=== PATIENT | female | born 1980 | race American Indian/Alaskan Native ===

== ENCOUNTER 2016-09-18 18:53 | Emergency (ER) | payer MEDICAID ==
[2016-09-18] MEDS ORDERED: XYLOCAINE 2% INFILTRATI ONE ×2 (21:02→21:05)
--- NOTE | 2016-09-18 21:14 | Emergency Department Report ---
Entered by BAYRON CROWELL, acting as scribe for SACHA MCGHEE PA. - General Chief complaint: Skin/Abscess/Foreign Body Stated complaint: LT UNDERARM SORE Time Seen by Provider: 09/18/16 20:32 Source: patient Mode of arrival: Ambulatory Limitations: No Limitations - History of Present Illness Initial comments: 35 y/o female presents to the ED c/o abscess to left armpit that began 4 days ago. Associated symptoms include pain but she denies fever and chills. Pain is described as constant and 8/10 on a severity scale. No alleviating or aggravating factors. NKDA. JAMISON complaint: abscess/boil (left armpit) Onset/Timin -: days(s) Severity: severe Severity scale (0 -10): 8 Quality: constant Consistency: constant Improves with: none Worsens with: none Context: none Associated symptoms: other (pain, no fever, no chills) Treatments Prior to Arrival: none - Related Data Previous Rx's Medication Instructions Recorded Last Taken Type Atenolol [Tenormin] 25 mg PO DAILY #30 tab 08/18/13 Unknown Rx LORazepam [Ativan] 1 mg PO QHS #20 tab 08/18/13 Unknown Rx LORazepam [Ativan] 1 mg PO BID PRN #20 tablet 04/09/14 Unknown Rx Ibuprofen [Motrin] 800 mg PO Q8HR PRN #30 tablet 09/18/16 Unknown Rx Sulfamethoxazole/Trimethoprim 1 each PO BID #10 tablet 09/18/16 Unknown Rx [Bactrim DS TAB] Allergies Allergy/AdvReac Type Severity Reaction Status Date / Time paroxetine HCl [From Paxil] Allergy Unknown Verified 08/18/13 16:17 sertraline HCl [From Zoloft] Allergy Unknown Verified 09/18/16 19:22 Abscess Boil HPI - HPI Chief Complaint: Skin/Abscess/Foreign Body Stated Complaint: LT UNDERARM SORE Time Seen by Provider: 09/18/16 20:32 Duration: 4 Days Location: Other (lert armpit) Severity: Moderate History: No Fever, No Pain, No Purulent Drainage, No Numbness, No Foreign Body, No Previous History, No Insect Bite Home Medications: Previous Rx's Medication Instructions Recorded Last Taken Type Atenolol [Tenormin] 25 mg PO DAILY #30 tab 08/18/13 Unknown Rx LORazepam [Ativan] 1 mg PO QHS #20 tab 08/18/13 Unknown Rx LORazepam [Ativan] 1 mg PO BID PRN #20 tablet 04/09/14 Unknown Rx Ibuprofen [Motrin] 800 mg PO Q8HR PRN #30 tablet 09/18/16 Unknown Rx Sulfamethoxazole/Trimethoprim 1 each PO BID #10 tablet 09/18/16 Unknown Rx [Bactrim DS TAB] Allergies/Adverse Reactions: Allergies Allergy/AdvReac Type Severity Reaction Status Date / Time paroxetine HCl [From Paxil] Allergy Unknown Verified 08/18/13 16:17 sertraline HCl [From Zoloft] Allergy Unknown Verified 09/18/16 19:22 ED Review of Systems Comment: All other systems reviewed and negative Constitutional: denies: chills, fever Skin: other (abscess to left armpit and pain) ED Past Medical Hx - Past Medical History Previous Medical History?: Yes Hx Hypertension: Yes Hx Psychiatric Treatment: Yes (Depression) Additional medical history: irregular heartbeat, anxiety - Surgical History Hx Appendectomy: Yes Additional Surgical History: L fallopian tube, hernia repairx2 - Social History Smoking Status: Unknown if ever smoked - Medications Home Medications: Home Medications Medication Instructions Recorded Confirmed Last Taken Type Atenolol [Tenormin] 25 mg PO DAILY #30 tab 08/18/13 Unknown Rx LORazepam [Ativan] 1 mg PO QHS #20 tab 08/18/13 Unknown Rx LORazepam [Ativan] 1 mg PO BID PRN #20 tablet 04/09/14 Unknown Rx Ibuprofen [Motrin] 800 mg PO Q8HR PRN #30 tablet 09/18/16 Unknown Rx Sulfamethoxazole/Trimethoprim 1 each PO BID #10 tablet 09/18/16 Unknown Rx [Bactrim DS TAB] ED Physical Exam - General Limitations: No Limitations General appearance: alert, in no apparent distress - Head Head exam: Present: atraumatic, normocephalic, normal inspection - Eye Eye exam: Present: normal appearance, PERRL, EOMI Pupils: Present: normal accommodation - ENT ENT exam: Present: normal exam, normal orophraynx, mucous membranes moist, TM's normal bilaterally, normal external ear exam - Neck Neck exam: Present: normal inspection, full ROM. Absent: tenderness - Respiratory Respiratory exam: Present: normal lung sounds bilaterally. Absent: wheezes, rales, rhonchi - Cardiovascular Cardiovascular Exam: Present: regular rate, normal rhythm, normal heart sounds. Absent: systolic murmur, diastolic murmur, rubs, gallop - GI/Abdominal GI/Abdominal exam: Present: soft, normal bowel sounds. Absent: tenderness, guarding, rebound - Extremities Exam Extremities exam: Present: normal inspection, full ROM. Absent: tenderness, normal capillary refill, pedal edema, joint swelling, calf tenderness - Back Exam Back exam: Present: normal inspection, full ROM. Absent: tenderness, CVA tenderness (R), CVA tenderness (L), muscle spasm, paraspinal tenderness, vertebral tenderness, rash noted - Neurological Exam Neurological exam: Present: alert, oriented X3 - Psychiatric Psychiatric exam: Present: normal affect, normal mood - Skin Skin exam: Present: other (2-3 cm abscess to left armpit, tender to palpation, no active bleeding, no discharge ) ED Course Vital Signs 09/18/16 19:26 Temperature 98.1 F Pulse Rate 91 H Respiratory 20 Rate Blood Pressure 117/88 O2 Sat by Pulse 98 Oximetry ED Medical Decision Making - Medical Decision Making 35-year-old female presents with axillary abscess ED course: Patient received 2 tablets of Tylenol 3 Patient positioned appropriately, 10cc lidocaine with/without epinephrine was used as a local anesthetic. #11 blade scalpal used for single incision. Additional local anesthetic injected into surrounding viable tissue prior to blunt dissection of loculated adhesions. Copius drainage of pus She understands instructions given Wound packed with iodoform gauze. Procedure tolerated without complications. Wound dressed with sterile 4x4 guaze and paper tape. Pt tolerated procedure well. Patient told to return to ED in 2-3 days for wound check Vital signs are stable patient is in no acute distress ED Disposition Clinical Impression: Cutaneous abscess of left axilla Disposition: TO HOME OR SELFCARE Is pt being admited?: No Does the pt Need Aspirin: No Condition: Stable Instructions: Abscess Incision and Drainage (ED), Abscess (ED) Prescriptions: Ibuprofen [Motrin] 800 mg PO Q8HR PRN #30 tablet PRN Reason: Pain Sulfamethoxazole/Trimethoprim [Bactrim DS TAB] 1 each PO BID #10 tablet Referrals: PRIMARY CARE, [Primary Care Provider] - 3-5 Days [facility] [Outside] - 3-[address] [facility] [Outside] - 3-5 Days Forms: Work/School Release Form(ED) This documentation as recorded by the MERVAT mckenzie ELIZABETH,accurately reflects the service I personally performed and the decisions made by me,SACHA MCGHEE PA.
[2016-09-18] MEDS ORDERED: TYLENOL #3 PO ONE (22:00)
[2016-09-18 22:46] VITALS: BP 126/90
== END 2016-09-18 22:30 | disposition home or self-care (01) ==
LOC: ED 18:53
DX: L02.412 Cutaneous abscess of left axilla (principal); I10 Essential (primary) hypertension; F32.9 Major depressive disorder, single episode, unspecified; Z88.8 Allergy status to other drugs, medicaments and biological substances

== ENCOUNTER 2016-09-19 18:00 | Emergency (ER) | payer MEDICAID ==
[2016-09-19 18:22] VITALS: BP 119/81
--- NOTE | 2016-09-19 20:46 | Emergency Department Report ---
Chief Complaint: Laceration/Recheck/Suture Stated Complaint: RECHECK/ABCESS LEFT ARM Time Seen by Provider: 09/19/16 20:24 - HPI History of Present Illness: 35-year-old female returns to ED after incision and drainage performed yesterday complaining no pain relief with Motrin was given. States pain is aggravated and prevented her from sleeping. She states movement makes the pain worse She denies fevers/chills/assessment from his previous chest pain or any other problems - ROS Review of Systems: As noted in history - Exam Vital Signs: Vital Signs 09/19/16 18:18 Temperature 98.4 F Pulse Rate 102 H Respiratory 20 Rate Blood Pressure 119/81 O2 Sat by Pulse 100 Oximetry Physical Exam: GENERAL: Alert and oriented x3, no apparent distress, Normal Gait, atraumatic. LUNGS: Symetrical with respiration, No wheezing, no rales or crackles, CTAB. HEART: S1, S2 present, regular rate and rhythm without murmur, no rubs, no gallops. Non tender to palpation EXTREMITIES/MUSCULOSKELETAL: No cyanosis, clubbing, rash, lesions or edema. Full ROM bilaterally. UE/LE Pulses 2+ bilaterally. NEUROLOGIC: The patient is cooperative with no focal neurologic deficits. Cranial nerves II through XII are grossly intact. SKIN: Warm and dry, No lesions, No ulceration or induration present. MSE screening note: Focused history and physical exam performed. Due to findings the following was ordered: ED Medical Decision Making - Medical Decision Making Present female presents wound check ED course: Wound was assessed. Dressing was changed. Discussed with patient to make sure to change dressing daily. Discussed return in 2 days for wound check and gauze removal or change Patient states she understands instructions and will follow-up ED Disposition for MSE Clinical Impression: Wound check, abscess Disposition: DC-01 TO HOME OR SELFCARE Is pt being admited?: No Does the pt Need Aspirin: No Condition: Stable Instructions: Abscess Incision and Drainage (ED) Prescriptions: Acetaminophen/Codeine [Tylenol /Codeine # 3 tab] 1 tab PO Q6H PRN #20 tab PRN Reason: Pain Referrals: PRIMARY CARE, [Primary Care Provider] - 3-5 Days Forms: Accompanied Note, Work/School Release Form(ED) Time of Disposition: 20:46
== END 2016-09-19 21:06 | disposition home or self-care (01) ==
LOC: ED 18:00
DX: Z48.00 Encounter for change or removal of nonsurgical wound dressing (principal); Z53.21 Procedure and treatment not carried out due to patient leaving prior to being seen by health care provider

== ENCOUNTER 2016-09-21 20:50 | Emergency (ER) | payer MEDICAID ==
[2016-09-21 21:00] VITALS: BP 114/73
--- NOTE | 2016-09-21 21:56 | Emergency Department Report ---
ED Recheck HPI - General Chief Complaint: Skin/Abscess/Foreign Body Stated Complaint: GET LACERATION UNPACKED Time Seen by Provider: 09/21/16 21:19 Source: patient Mode of arrival: Ambulatory Limitations: No Limitations - History of Present Illness Initial Comments: This is a 35-year-old female well-nourished with nontoxic or ill in appearance that presents with an incision and drainage that has been performed on 2016 in the left axilla region. Patient stated she is currently taking Bactrim that was prescribed to her in the time of visit. Patient stated has had some purulent drainage but denies any fever, chills, CP, SOB, numbness, tingling, stiff neck, n/v. Patients is present at bedside. Patient denies any swelling to the region or joint pain/redness. Patient denies any pain. Stated allergies to Paxil and Zoloft. Denies [facility]. Complaint: wound re-check, other (packing removal) -: Gradual, days(s) (2) Initial Visit For: abscess Returns Today for: wound recheck, other (packing removal) Symptoms Since Prior Visit: no new symptoms, improved Context: planned re-check Associated Symptoms: none. denies: fever, chills, chest pain, shortness of breath, rash, malaise, nasuea, abdominal pain - Related Data Previous Rx's Medication Instructions Recorded Last Taken Type Atenolol [Tenormin] 25 mg PO DAILY #30 tab 08/18/13 Unknown Rx LORazepam [Ativan] 1 mg PO QHS #20 tab 08/18/13 Unknown Rx LORazepam [Ativan] 1 mg PO BID PRN #20 tablet 04/09/14 Unknown Rx Ibuprofen [Motrin] 800 mg PO Q8HR PRN #30 tablet 09/18/16 Unknown Rx Sulfamethoxazole/Trimethoprim 1 each PO BID #10 tablet 09/18/16 Unknown Rx [Bactrim DS TAB] Acetaminophen/Codeine [Tylenol 1 tab PO Q6H PRN #20 tab 09/19/16 Unknown Rx /Codeine # 3 tab] Allergies Allergy/AdvReac Type Severity Reaction Status Date / Time paroxetine HCl [From Paxil] Allergy Unknown Verified 08/18/13 16:17 sertraline HCl [From Zoloft] Allergy Unknown Verified 09/18/16 19:22 ED Review of Systems ROS: Stated complaint: GET LACERATION UNPACKED Other details as noted in HPI Constitutional: denies: chills, fever Eyes: denies: eye pain, eye discharge, vision change ENT: denies: ear pain, throat pain Respiratory: denies: cough, shortness of breath, wheezing Cardiovascular: denies: chest pain, palpitations Endocrine: no symptoms reported Gastrointestinal: denies: abdominal pain, nausea, diarrhea Genitourinary: denies: urgency, dysuria, discharge Musculoskeletal: denies: back pain, joint swelling, arthralgia Skin: denies: rash, lesions Neurological: denies: headache, weakness, paresthesias Psychiatric: denies: anxiety, depression Hematological/Lymphatic: denies: easy bleeding, easy bruising ED Past Medical Hx - Past Medical History Hx Hypertension: Yes (diet controlled/brought on from anxiety) Hx Psychiatric Treatment: Yes (Depression) Additional medical history: irregular heartbeat, anxiety - Surgical History Hx Appendectomy: Yes Additional Surgical History: L fallopian tube, hernia repairx2 - Social History Smoking Status: Unknown if ever smoked Substance Use Type: None - Medications Home Medications: Home Medications Medication Instructions Recorded Confirmed Last Taken Type Atenolol [Tenormin] 25 mg PO DAILY #30 tab 08/18/13 Unknown Rx LORazepam [Ativan] 1 mg PO QHS #20 tab 08/18/13 Unknown Rx LORazepam [Ativan] 1 mg PO BID PRN #20 tablet 04/09/14 Unknown Rx Ibuprofen [Motrin] 800 mg PO Q8HR PRN #30 tablet 09/18/16 Unknown Rx Sulfamethoxazole/Trimethoprim 1 each PO BID #10 tablet 09/18/16 Unknown Rx [Bactrim DS TAB] Acetaminophen/Codeine [Tylenol 1 tab PO Q6H PRN #20 tab 09/19/16 Unknown Rx /Codeine # 3 tab] ED Physical Exam - General Limitations: No Limitations General appearance: alert, in no apparent distress - Head Head exam: Present: atraumatic, normocephalic - Eye Eye exam: Present: normal appearance, PERRL, EOMI. Absent: scleral icterus, conjunctival injection, nystagmus, periorbital swelling, periorbital tenderness - ENT ENT exam: Present: mucous membranes moist - Neck Neck exam: Present: normal inspection, full ROM. Absent: tenderness, meningismus, lymphadenopathy, thyromegaly - Respiratory Respiratory exam: Present: normal lung sounds bilaterally. Absent: respiratory distress, wheezes, rales, rhonchi, stridor, chest wall tenderness, accessory muscle use, decreased breath sounds, prolonged expiratory - Cardiovascular Cardiovascular Exam: Present: regular rate, normal rhythm, normal heart sounds. Absent: bradycardia, tachycardia, irregular rhythm, systolic murmur, diastolic murmur, rubs, gallop - GI/Abdominal GI/Abdominal exam: Present: soft, normal bowel sounds. Absent: distended, tenderness, guarding, rebound, rigid, diminished bowel sounds - Rectal Rectal exam: Present: deferred - Extremities Exam Extremities exam: Present: normal inspection, full ROM, normal capillary refill. Absent: tenderness, pedal edema, joint swelling, calf tenderness - Back Exam Back exam: Present: normal inspection, full ROM. Absent: tenderness, CVA tenderness (R), CVA tenderness (L), muscle spasm, paraspinal tenderness, vertebral tenderness, rash noted - Neurological Exam Neurological exam: Present: alert, oriented X3, CN II-XII intact, normal gait, reflexes normal - Psychiatric Psychiatric exam: Present: normal affect, normal mood - Skin Skin exam: Present: warm, dry, intact, normal color. Absent: rash - Other Other exam information: 1 cm open wound status post incision and drainage left axilla. No drainage noted. No pus. No swelling. No fluctuance. Nontender. ED Course Vital Signs 09/21/16 20:56 Temperature 98 F Pulse Rate 82 Respiratory 18 Rate Blood Pressure 114/73 O2 Sat by Pulse 100 Oximetry - Reevaluation(s) Reevaluation #1: 09/21/16 22:16 Patient is with talking and no signs of distress noted. ED Recheck MDM - Medical Decision Making ED course: This is a 30-year-old female presents with a wound recheck and packing removal Patient was examined by me. A 1 cm incision to the left axilla region status post I&D that was performed 09/19/2016. A packing of iodoform has been removed with minimal purulent drainage. No fluctuance present. No numbness. No tingling. No drainage noted. No purulent drainage. Patient was instructed to wash the area was water once at home. A sterile 4 x 4 dressing has been placed. Patient was instructed to finish full course of antibiotics that was prescribed to the patient. At time time of discharge, the patient does not seem toxic or ill in appearance. No acute signs of distress noted. Patient agrees to discharge treatment plan of care. No further questions noted by the patient. Critical care attestation.: If time is entered above; I have spent that time in minutes in the direct care of this critically ill patient, excluding procedure time. ED Disposition Clinical Impression: Encounter for wound re-check, Abscess packing removal Disposition: TO HOME OR SELFCARE Is pt being admited?: No Does the pt Need Aspirin: No Condition: Stable Instructions: Acute Wound Care (ED) Additional Instructions: Continue taking antibiotics that were prescribed to during the procedure. Symptoms of increased pus or drainage, numbness or tingling, or swelling return back to emergency room as soon as possible. Referrals: PRIMARY CARE, [Primary Care Provider] - 3-5 Days TOSHIA GRACIA JR, MD [Staff Physician] - 3-5 Days [facility] [Outside] - 3-[address] [facility] [Outside] - 3-5 Days Forms: Work/School Release Form(ED)
== END 2016-09-21 22:25 | disposition home or self-care (01) ==
LOC: ED 20:50
DX: Z48.00 Encounter for change or removal of nonsurgical wound dressing (principal); I10 Essential (primary) hypertension; F32.9 Major depressive disorder, single episode, unspecified; Z88.8 Allergy status to other drugs, medicaments and biological substances
CPT/HCPCS: 99282

== ENCOUNTER 2017-03-21 03:15 | Emergency (ER) | payer MEDICAID ==
[2017-03-21 03:45] VITALS: BP 153/97
--- NOTE | 2017-03-21 05:33 | XRay Report ---
FINAL REPORT EXAM: XR FEMUR 2+V LT HISTORY: PAIN LEFT FEMUR COMPARISONS: None. FINDINGS: AP and lateral views left femur No bone lesion, periosteal reaction, or fracture. No deformity or gross malalignment. Imaged joint spaces are grossly unremarkable. IMPRESSION: Intact left femur.
[2017-03-21] MEDS ORDERED: BOOSTRIX IM ONE (05:36)
[2017-03-21] MEDS ORDERED: NORCO 5/325 PO ONE (05:38)
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
[2017-03-21 05:51] LABS: Amorphous Crystals,Urine Few; Bacteria,Urine 4+ /HPF (Negative); Bilirubin,Urine NEG (Negative); Blood,Urine MOD (Negative); Color,Urine Straw (Yellow); HCG Qualitative,Urine Negative (Negative); Nitrite,Urine NEG (Negative); Protein,Urine <15 mg/dL mg/dL (Negative); Urobilinogen,Urine < 2.0 mg/dL (<2.0)
[2017-03-21 05:55] LABS: Amphetamine Screen,Urine PRESUMPTIVE NEGATIVE; Cocaine Screen,Urine PRESUMPTIVE NEGATIVE; Methadone Screen,Urine PRESUMPTIVE NEGATIVE; Opiate Screen,Urine PRESUMPTIVE NEGATIVE
[2017-03-21 06:15] LABS: Benzodiazepines Screen,Urine PRESUMPTIVE POSITIVE; Cannabinoid Screen,Urine PRESUMPTIVE POSITIVE
[2017-03-21 06:25] LABS: Basophils % (Auto) 0.6 % (0.0-1.8); Eosinophils % (Auto) 0.2 % (0.0-4.3); Hematocrit 41.7 % (30.3-42.9); Lymphocytes # (Auto) 1.6 K/mm3 (1.2-5.4); Lymphocytes % (Auto) 22.3 % (13.4-35.0); Mean Corpuscular HGB Conc 34 % (30-34); Mean Corpuscular Hemoglobin 30 pg (28-32); Mean Corpuscular Volume 89 fl (79-97); Monocytes # (Auto) 0.4 K/mm3 (0.0-0.8); Monocytes % (Auto) 4.8 % (0.0-7.3); Platelet Count 235 K/mm3 (140-440); Red Blood Count 4.71 M/mm3 (3.65-5.03)
[2017-03-21 06:40] LABS: BUN/Creatinine Ratio 25; Blood Urea Nitrogen 15 mg/dL (7-17); Calcium 9.1 mg/dL (8.4-10.2); Hemolysis Index 15
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
[2017-03-21] MEDS ORDERED: XANAX PO ONE (08:28)
== END 2017-03-21 08:55 | disposition home or self-care (01) ==
LOC: ED 03:15
DX: S02.40DA Maxillary fracture, left side, initial encounter for closed fracture (principal); M79.605 Pain in left leg; I10 Essential (primary) hypertension; F17.200 Nicotine dependence, unspecified, uncomplicated; Y04.2XXA Assault by strike against or bumped into by another person, initial encounter; Y93.89 Activity, other specified; Y99.8 Other external cause status; Y92.89 Other specified places as the place of occurrence of the external cause
CPT/HCPCS: 36415; 70450; 70486; 71046; 72125; 73552; 73562; 80048; 80307; 81001; 81025; 82550; 85025; 90471; 90715; 99285; G0480; 80320